=== PATIENT | female | born 1950 | race Caucasian/White ===

== ENCOUNTER 2017-08-18 17:33 | Inpatient (IN) | payer BC, OTHER ==
[~2017-08-18] VITALS: Ht 172.7 cm; Wt 129.6 kg
[~2017-08-18 17:33] MED LIST: ASPI-1009 PO; BIFI1CAP PO; CALC625T31 PO; CLON-528 PO; CYCL-1 PO; FLUO40CA10 PO; HYDR-565 PO; LURA40TA3 PO; METO25TA6 PO; MULT-1085 PO; PANT40TA39 PO; TOPI100T18 PO; ZOLP5TAB8 PO
[2017-08-18] MEDS ORDERED: HYDROmorphone 2mg/ml vial IM STA (19:11)
[2017-08-18] MEDS ORDERED: diazepam 5mg tablet PO STA (19:11)
[2017-08-18] MEDS ORDERED: ketorolac trometh. 30mg/ml inj. IM ONE (19:15)
[2017-08-18] MEDS ORDERED: HYDR-565 PO (19:34)
[2017-08-18] MEDS ORDERED: GABA300C PO (19:34)
[2017-08-18] MEDS ORDERED: CYCL-1 PO (19:34)
[2017-08-18] MEDS ORDERED: HYDROmorphone 1 mg/ml syringe IM ONE (23:45)
[2017-08-19] MEDS: normal saline 1000ml 1,000 ML IV SCH ×2 (00:22→16:43)
[2017-08-19] MEDS ORDERED: morphine 2 MG/ML inj. syringe IV PRN ×2 (00:25)
[2017-08-19] MEDS ORDERED: ondansetron/PF 4mg/2ml inj IV PRN (00:25)
[2017-08-19] MEDS ORDERED: potassium Cl 40MEQ/NS 500ml 500 ML IV PRN ×2 (00:25)
[2017-08-19] MEDS ORDERED: HYDROcodone/acetaminophen 5mg/325mg tablet PO PRN (00:25)
[2017-08-19] MEDS ORDERED: mag hydrox/Alum hydrox/simeth 30ml oral suspension PO PRN (00:25)
[2017-08-19] MEDS ORDERED: magnesium 2GM in 50ml NS 50 ML IV PRN (00:25)
[2017-08-19] MEDS ORDERED: potassium Cl 20 mEq SR tablet PO PRN ×2 (00:25)
[2017-08-19] MEDS ORDERED: magnesium 4gm in 100ml NS 100 ML IV PRN (00:25)
[2017-08-19] MEDS ORDERED: magnesium Cl slow-release 64mg tablet PO PRN (00:25)
[2017-08-19] MEDS ORDERED: magnesium hydroxide 30ml (MOM) UD suspension PO PRN (00:25)
[2017-08-19] MEDS ORDERED: HYDROcodone/acetaminophen 10/325mg tab PO PRN (00:25)
[2017-08-19 01:08] LABS: BASOPHILS # (AUTO) 0.1 X10'3 (0-0.2); BASOPHILS % (AUTO) 0.5 % (0-1); EOSINOPHILS # (AUTO) 0.2 X10'3 (0-0.9); EOSINOPHILS % (AUTO) 1.8 % (0-6); HEMATOCRIT 47.2 % (35.0-45.0); HEMOGLOBIN 15.3 g/dl (12.0-16.0); LYMPHOCYTES # (AUTO) 3.6 X10'3 (1.1-4.8); LYMPHOCYTES % (AUTO) 27.6 % (21-51); MEAN CORPUSCULAR HEMOGLOBIN 27.9 PG (27.0-31.0); MEAN CORPUSCULAR HGB CONC 32.5 % (33.0-36.5); MEAN CORPUSCULAR VOLUME 85.9 FL (78-98); MEAN PLATELET VOLUME 7.9 FL (7.4-10.4); MONOCYTES % (AUTO) 7.5 % (2-12); NEUTROPHILS # (AUTO) 8.2 X10'3 (1.8-7.7); NEUTROPHILS % (AUTO) 62.6 % (42-75); PLATELET COUNT 250 X10'3 (140-440); RED BLOOD COUNT 5.49 X10'6 (4.20-5.60); RED CELL DISTRIBUTION WIDTH 13.3 % (11.5-14.5); WHITE BLOOD COUNT 13.1 X10'3 (4.5-11.0)
[2017-08-19 01:11] LABS: ALANINE AMINOTRANSFERASE 65 U/L (12-78); ALBUMIN 3.5 G/DL (3.4-5.0); ALBUMIN/GLOBULIN RATIO 0.9 (1.1-1.5); ALKALINE PHOSPHATASE 124 IU/L (46-116); ANION GAP 12 (8-16); ASPARTATE AMINO TRANSFERASE 134 U/L (10-37); BLOOD UREA NITROGEN 10 MG/DL (7-18); BUN/CREATININE RATIO 8.3 (6.6-38.0); CALCIUM 8.9 MG/DL (8.5-10.1); CHLORIDE 105 MMOL/L (99-107); GLUCOSE 115 MG/DL (70-104); POTASSIUM 3.5 MMOL/L (3.5-5.1); SODIUM 140 MMOL/L (135-145); TOTAL CARBON DIOXIDE 22.9 MMOL/L (24-32); TOTAL PROTEIN 7.2 G/DL (6.4-8.2); eGFR 45 ML/MIN
[2017-08-19 01:31] LABS: INR 1.1 INR; PARTIAL THROMBOPLASTIN TIME 27 SECONDS (22-32); PROTHROMBIN TIME 11.6 SECONDS (9.0-12.0)
[2017-08-19 02:00] VITALS: BP 138/84
[2017-08-19] MEDS: acetaminophen 325mg tablet PO PRN ×3 (05:15→21:29)
[2017-08-19 06:00] VITALS: BP 148/95
[2017-08-19 06:20] LABS: CLARITY,URINE CLEAR (Clear); COLOR,URINE YELLOW (Yellow); GLUCOSE, URINE NEGATIVE (Neg); KETONES,URINE NEGATIVE (Neg); LEUKOCYTE ESTERASE ,URINE TRACE (Neg); NITRITES, URINE NEGATIVE (Neg); OCCULT BLOOD,URINE NEGATIVE (Neg); PROTEIN,URINE NEGATIVE (Neg)
[2017-08-19 06:26] LABS: UA COLLECTION TYPE CLN CATCH MIDSTREAM
[2017-08-19 06:30] LABS: BACTERIA,URINE FEW /HPF (Neg); HYALINE CASTS 0-3 /LPF (NEGATIVE); MUCUS STRANDS FEW /LPF (Neg); RBC,URINE 0-2 /HPF (0-2); RENAL CELLS, URINE MODERATE /HPF; SQUAMOUS EPITHELIAL CELL,UR FEW /LPF (FEW); TRANSITIONAL EPI CELLS,URINE FEW /HPF
[2017-08-19] MEDS ORDERED: FLU VACC QS2017-18 36MOS UP/PF 60 MCG/0.5 ML SYRINGE IMVAC ONE (06:35)
[2017-08-19] MEDS ORDERED: pneumococcal 23-VAL P-sac vacc 25 mcg/0.5ml vial IMVAC ONE (06:40)
[2017-08-19] MEDS: K and/or MAG REPLACEMENT MC SCH (08:00)
[2017-08-19] MEDS: calcium polycarbophil 625mg tablet PO SCH (08:00)
[2017-08-19] MEDS: FLUoxetine 20mg capsule PO SCH (08:29)
[2017-08-19] MEDS: metoprolol tartrate 25mg tablet PO SCH ×2 (08:29→21:27)
[2017-08-19] MEDS: pantoprazole 40mg Tablet.DR PO SCH ×2 (08:29→21:28)
[2017-08-19] MEDS: topiramate 100mg tablet PO SCH ×2 (08:29→21:27)
[2017-08-19 10:00] VITALS: BP 146/84
[2017-08-19] MEDS ORDERED: diazepam 5mg tablet PO ONE (10:30)
[2017-08-19] MEDS ORDERED: morphine 5 MG/ML injection IV PRN (11:30)
[2017-08-19] MEDS: morphine 5 MG/ML injection IV PRN ×2 (11:45→16:40)
[2017-08-19] MEDS ORDERED: lurasidone 20mg tablet PO ONE (17:00)
[2017-08-19 18:00] VITALS: BP 159/85
[2017-08-19] MEDS ORDERED: temazepam 15mg capsule PO PRN (21:00)
[2017-08-19] MEDS ORDERED: gabapentin 300mg capsule PO SCH (21:00)
[2017-08-19] MEDS ORDERED: clonazePAM 0.5mg tablet PO SCH (21:00)
[2017-08-19 22:00] VITALS: BP 112/68
[2017-08-20] MEDS: acetaminophen 325mg tablet PO PRN ×2 (05:41→12:22)
[2017-08-20] MEDS: calcium polycarbophil 625mg tablet PO SCH (07:16)
[2017-08-20] MEDS: K and/or MAG REPLACEMENT MC SCH (08:00)
[2017-08-20] MEDS: pantoprazole 40mg Tablet.DR PO SCH ×2 (09:07→19:51)
[2017-08-20] MEDS: morphine 5 MG/ML injection IV PRN ×2 (09:07→14:25)
[2017-08-20] MEDS: metoprolol tartrate 25mg tablet PO SCH ×2 (09:09→19:51)
[2017-08-20] MEDS: topiramate 100mg tablet PO SCH ×2 (09:09→19:51)
[2017-08-20] MEDS: FLUoxetine 20mg capsule PO SCH (09:09)
[2017-08-20 10:00] VITALS: BP 131/77
[2017-08-20] MEDS ORDERED: LURASIDONE HCL 40 MG PO SCH (17:00)
[2017-08-20 18:00] VITALS: BP 128/75
[2017-08-20] MEDS ORDERED: morphine 2 MG/ML inj. syringe IV PRN (19:57)
[2017-08-20] MEDS: morphine 2 MG/ML inj. syringe IV PRN (20:04)
[2017-08-20] MEDS: clonazePAM 0.5mg tablet PO SCH (21:07)
[2017-08-20 22:00] VITALS: BP 117/76
[2017-08-21] MEDS: morphine 2 MG/ML inj. syringe IV PRN ×3 (02:47→11:31)
[2017-08-21 05:00] VITALS: BP 127/75
[2017-08-21] MEDS: FLUoxetine 20mg capsule PO SCH (07:33)
[2017-08-21] MEDS: topiramate 100mg tablet PO SCH ×2 (07:33→20:12)
[2017-08-21] MEDS: pantoprazole 40mg Tablet.DR PO SCH ×2 (07:33→20:12)
[2017-08-21] MEDS: calcium polycarbophil 625mg tablet PO SCH (07:33)
[2017-08-21] MEDS: metoprolol tartrate 25mg tablet PO SCH ×2 (07:33→20:12)
[2017-08-21] MEDS: K and/or MAG REPLACEMENT MC SCH (08:00)
[2017-08-21 12:07] VITALS: BP 115/72
[2017-08-21] MEDS: oxyCODONE/APAP 10/325mg tablet PO PRN ×2 (15:55→20:16)
[2017-08-21 18:30] VITALS: BP 147/82
[2017-08-21] MEDS: clonazePAM 0.5mg tablet PO SCH (20:12)
[2017-08-21 22:00] VITALS: BP 115/69
[2017-08-22] MEDS: oxyCODONE/APAP 10/325mg tablet PO PRN ×5 (03:45→20:17)
[2017-08-22] MEDS: FLUoxetine 20mg capsule PO SCH (07:41)
[2017-08-22] MEDS: pantoprazole 40mg Tablet.DR PO SCH ×2 (07:42→20:17)
[2017-08-22] MEDS: topiramate 100mg tablet PO SCH ×2 (07:42→20:17)
[2017-08-22] MEDS: calcium polycarbophil 625mg tablet PO SCH (07:42)
[2017-08-22] MEDS: metoprolol tartrate 25mg tablet PO SCH ×2 (07:43→20:17)
[2017-08-22] MEDS: K and/or MAG REPLACEMENT MC SCH (08:00)
[2017-08-22] MEDS ORDERED: lactulose 20gm/30ml cup PO PRN (09:45)
[2017-08-22 11:10] VITALS: BP 112/54
[2017-08-22 18:30] VITALS: BP 134/75
[2017-08-22] MEDS: docusate sod 250mg capsule PO SCH (20:00)
[2017-08-22] MEDS: clonazePAM 0.5mg tablet PO SCH (20:17)
[2017-08-22] MEDS ORDERED: sennosides 8.6mg tablet PO SCH (21:00)
[2017-08-22 22:00] VITALS: BP 111/70
[2017-08-23] MEDS: oxyCODONE/APAP 10/325mg tablet PO PRN ×2 (04:30→08:32)
[2017-08-23 05:00] VITALS: BP 104/72
[2017-08-23] MEDS: K and/or MAG REPLACEMENT MC SCH (07:29)
[2017-08-23] MEDS: FLUoxetine 20mg capsule PO SCH (07:44)
[2017-08-23] MEDS: pantoprazole 40mg Tablet.DR PO SCH (07:44)
[2017-08-23] MEDS: topiramate 100mg tablet PO SCH (07:44)
[2017-08-23] MEDS: metoprolol tartrate 25mg tablet PO SCH (07:44)
[2017-08-23] MEDS: docusate sod 250mg capsule PO SCH (08:00)
[2017-08-23] MEDS: calcium polycarbophil 625mg tablet PO SCH (08:00)
== END 2017-08-23 11:55 | disposition home or self-care (01) | DRG 552 ==
LOC: ER 17:34 → ED HOLD 08-19 00:22 → ORTHO 4S 08-19 01:15
PROVIDERS: ADMIT Internal Medicine; ATTEND Family Medicine
DX: S22.089A Unspecified fracture of T11-T12 vertebra, initial encounter for closed fracture (principal); E66.01 Morbid (severe) obesity due to excess calories; Z68.41 Body mass index [BMI] 40.0-44.9, adult; I10 Essential (primary) hypertension; G62.9 Polyneuropathy, unspecified; G89.29 Other chronic pain; K21.9 Gastro-esophageal reflux disease without esophagitis; M19.90 Unspecified osteoarthritis, unspecified site; K59.00 Constipation, unspecified; S80.01XA Contusion of right knee, initial encounter; F32.9 Major depressive disorder, single episode, unspecified; F41.9 Anxiety disorder, unspecified; Z88.6 Allergy status to analgesic agent; Z79.899 Other long term (current) drug therapy; Z90.49 Acquired absence of other specified parts of digestive tract; Z90.710 Acquired absence of both cervix and uterus; Z85.41 Personal history of malignant neoplasm of cervix uteri; Z87.11 Personal history of peptic ulcer disease; V87.7XXA Person injured in collision between other specified motor vehicles (traffic), initial encounter; Y93.89 Activity, other specified; Y92.410 Unspecified street and highway as the place of occurrence of the external cause; Y99.8 Other external cause status
CPT/HCPCS: 36415; 71101; 72125; 72128; 72131; 72146; 73560; 76700; 80053; 81001; 83735; 85025; 85610; 85730; 87070; 87088; 96372; 97110; 97116; 97162; 97530; 99285; J1170; J1885; J2270; J7030; Q2037

== ENCOUNTER 2020-11-04 09:35 | Outpatient (CLI) | payer MEDICARE ==
[2020-11-04] VITALS (18 sets, daily range): BP systolic 48–174; BP diastolic 23–125
[~2020-11-04 09:35] MED LIST changes: -CALC625T31 PO; +CHOL50004 PO; -CYCL-1 PO; -HYDR-565 PO; +LOP25T PO; -LURA40TA3 PO; -METO25TA6 PO; +OMEG-79 PO; +ROSU20TA2 PO; +SELE200C PO; +TOP100T PO; -TOPI100T18 PO; -ZOLP5TAB8 PO; +[UNRECOGNIZED DRUG - OTHER] PO
== END 2020-11-04 23:59 | disposition home or self-care (01) ==
LOC: CARD DIAG 09:35
PROVIDERS: ATTEND Internal Medicine Interventional Cardiology
DX: R55 Syncope and collapse (principal)
CPT/HCPCS: 93660

== ENCOUNTER 2022-01-20 04:33 | Emergency (ER) | payer MEDICARE ==
[~2022-01-20] VITALS: Ht 172.7 cm; Wt 86.3 kg
[2022-01-20] MEDS ORDERED: ondansetron/PF 4mg/2ml inj IV ONE (05:45)
[2022-01-20 06:06] LABS: BASOPHILS % (AUTO) 0.4 % (0-1); EOSINOPHILS # (AUTO) 0.2 X10'3 (0-0.9); EOSINOPHILS % (AUTO) 1.8 % (0-6); HEMATOCRIT 41.9 % (35.0-45.0); HEMOGLOBIN 13.8 g/dl (12.0-16.0); LYMPHOCYTES # (AUTO) 2.5 X10'3 (1.1-4.8); LYMPHOCYTES % (AUTO) 28.5 % (21-51); MEAN CORPUSCULAR HEMOGLOBIN 27.8 PG (27.0-31.0); MEAN CORPUSCULAR VOLUME 84.2 FL (78-98); MEAN PLATELET VOLUME 6.8 FL (7.4-10.4); MONOCYTES # (AUTO) 0.7 X10'3 (0-0.9); MONOCYTES % (AUTO) 7.7 % (2-12); NEUTROPHILS # (AUTO) 5.5 X10'3 (1.8-7.7); NEUTROPHILS % (AUTO) 61.6 % (42-75); PLATELET COUNT 228 X10'3 (140-440); RED BLOOD COUNT 4.97 X10'6 (4.20-5.60); RED CELL DISTRIBUTION WIDTH 14.5 % (11.5-14.5); WHITE BLOOD COUNT 8.9 X10'3 (4.5-11.0)
[2022-01-20 06:23] LABS: ALANINE AMINOTRANSFERASE 105 U/L (12-78); ALBUMIN 3.1 G/DL (3.4-5.0); ANION GAP 7 (8-16); ASPARTATE AMINO TRANSFERASE 214 U/L (10-37); BILIRUBIN,TOTAL 0.7 MG/DL (0.1-1.0); BLOOD UREA NITROGEN 9 MG/DL (7-18); BUN/CREATININE RATIO 9.5 (6.6-38.0); CHLORIDE 109 MMOL/L (99-107); CREATININE 0.95 MG/DL (0.40-0.90); GLUCOSE 95 MG/DL (70-104); SODIUM 140 MMOL/L (135-145); TOTAL CARBON DIOXIDE 24.5 MMOL/L (24-32); TOTAL PROTEIN 6.1 G/DL (6.4-8.2); eGFR 58 ML/MIN
[2022-01-20 06:29] LABS: POTASSIUM 2.8 MMOL/L (3.5-5.1)
[2022-01-20] MEDS ORDERED: aluminum hydroxide 1,920MG/30ml UD cup PO PRN (06:30)
[2022-01-20] MEDS ORDERED: LIDOcaine Viscous 15ml cup MM PRN (06:30)
[2022-01-20] MEDS ORDERED: POTASSIUM BICARB 20meq eff tab 20 MEQ TABLET.EFF PO ONE (06:30)
[2022-01-20 06:39] LABS: ALKALINE PHOSPHATASE 144 IU/L (46-116); CALCIUM 8.3 MG/DL (8.5-10.1)
[2022-01-20] MEDS ORDERED: mag hydrox/Alum hydrox/simeth 30ml oral suspension PO PRN (06:55)
[2022-01-20 08:33] VITALS: BP 119/65
== END 2022-01-20 08:33 | disposition home or self-care (01) ==
LOC: ER 04:33
DX: K64.4 Residual hemorrhoidal skin tags (principal); E87.6 Hypokalemia; I25.10 Atherosclerotic heart disease of native coronary artery without angina pectoris; I10 Essential (primary) hypertension; K21.9 Gastro-esophageal reflux disease without esophagitis; G89.29 Other chronic pain; F41.9 Anxiety disorder, unspecified; F32.9 Major depressive disorder, single episode, unspecified; Z90.49 Acquired absence of other specified parts of digestive tract; Z90.710 Acquired absence of both cervix and uterus; Z98.890 Other specified postprocedural states; Z88.6 Allergy status to analgesic agent; Z79.82 Long term (current) use of aspirin; Z79.899 Other long term (current) drug therapy
CPT/HCPCS: 36415; 71045; 80053; 84484; 85025; 86885; 86900; 86901; 93005; 96374; 99285; J2405

== ENCOUNTER 2023-06-06 12:24 | Inpatient (IN) | payer MEDICARE ==
[~2023-06-06] VITALS: Ht 167.6 cm; Wt 109.0 kg
[2023-06-06 12:58] LABS: BASOPHILS # (AUTO) 0.1 X10'3 (0-0.2); BASOPHILS % (AUTO) 0.6 % (0-1); EOSINOPHILS # (AUTO) 0.5 X10'3 (0-0.9); EOSINOPHILS % (AUTO) 3.7 % (0-6); HEMATOCRIT 38.9 % (35.0-45.0); HEMOGLOBIN 12.6 g/dl (12.0-16.0); LYMPHOCYTES # (AUTO) 2.7 X10'3 (1.1-4.8); LYMPHOCYTES % (AUTO) 22.4 % (21-51); MEAN CORPUSCULAR HEMOGLOBIN 27.8 PG (27.0-31.0); MEAN CORPUSCULAR HGB CONC 32.4 g/dL (33.0-36.5); MONOCYTES % (AUTO) 7.9 % (2-12); NEUTROPHILS % (AUTO) 65.4 % (42-75); PLATELET COUNT 377 X10'3 (140-440); RED BLOOD COUNT 4.52 X10'6 (4.20-5.60); RED CELL DISTRIBUTION WIDTH 15.4 % (11.5-14.5); WHITE BLOOD COUNT 12.2 X10'3 (4.5-11.0)
[2023-06-06 13:19] LABS: ALANINE AMINOTRANSFERASE 19 U/L (12-78); ALBUMIN 2.9 G/DL (3.4-5.0); ALBUMIN/GLOBULIN RATIO 0.7 (1.1-1.5); ALKALINE PHOSPHATASE 120 IU/L (46-116); ANION GAP 9 (8-16); ASPARTATE AMINO TRANSFERASE 16 U/L (10-37); BILIRUBIN,TOTAL 0.4 MG/DL (0.1-1.0); BLOOD UREA NITROGEN 13 MG/DL (7-18); BUN/CREATININE RATIO 13.8 (10.0-20.0); CALCIUM 8.8 MG/DL (8.5-10.1); CHLORIDE 109 MMOL/L (99-107); CREATININE 0.94 MG/DL (0.40-0.90); GLUCOSE 99 MG/DL (70-104); POTASSIUM 3.6 MMOL/L (3.5-5.1); SODIUM 143 MMOL/L (135-145); TOTAL CARBON DIOXIDE 25.3 MMOL/L (24-32); TOTAL PROTEIN 6.8 G/DL (6.4-8.2); eCRCL 52 ML/MIN; eGFR 59 ML/MIN
[2023-06-06] MEDS ORDERED: ringers solution, lacted 1,000 ML IV ONE (15:25)
[2023-06-06] MEDS ORDERED: vancomycin/NS 1 GM ADD-VANTAGE 250 ML IV ONE (15:25)
[2023-06-06 16:11] LABS: APTT 27 SECONDS (22-32); INR 1.1 INR; PROTHROMBIN TIME 11.8 SECONDS (9.0-12.0)
[2023-06-06] MEDS ORDERED: HYDROcodone/acetaminophen 5mg/325mg tablet PO PRN (17:55)
[2023-06-06] MEDS ORDERED: acetaminophen 325mg tablet PO PRN (17:55)
[2023-06-06] MEDS ORDERED: morphine 2 MG/ML inj. syringe IV PRN (17:55)
[2023-06-06] MEDS ORDERED: mag hydrox/Alum hydrox/simeth 30ml oral suspension PO PRN (17:55)
[2023-06-06] MEDS ORDERED: magnesium hydroxide 30ml (MOM) UD suspension PO PRN (17:55)
[2023-06-06] MEDS ORDERED: magnesium 4gm in 100ml NS 100 ML IV PRN (17:55)
[2023-06-06] MEDS ORDERED: magnesium 2GM in 50ml NS 50 ML IV PRN (17:55)
[2023-06-06] MEDS ORDERED: magnesium Cl slow-release 64mg tablet PO PRN (17:55)
[2023-06-06] MEDS ORDERED: potassium Cl 40MEQ/1/2NS 520ml 520 ML IV PRN (17:55)
[2023-06-06] MEDS ORDERED: potassium Cl 20 mEq SR tablet PO PRN (17:55)
[2023-06-06] MEDS: K and/or MAG REPLACEMENT MC SCH (19:24)
[2023-06-06] MEDS ORDERED: piperacillin/tazo 4.5gm/100ml 100 ML IV ONE (20:00)
[2023-06-06] MEDS: heparin, porcine 5000 units/ml vial SQ SCH (20:12)
[2023-06-06] MEDS: HYDROcodone/acetaminophen 10/325mg tab PO PRN (23:58)
[2023-06-07 00:01] LABS: BILIRUBIN,URINE NEGATIVE (Neg); CLARITY,URINE SLIGHTLY CLOUDY (Clear); COLOR,URINE YELLOW (Yellow); GLUCOSE, URINE NEGATIVE (Neg); KETONES,URINE NEGATIVE (Neg); LEUKOCYTE ESTERASE ,URINE NEGATIVE (Neg); NITRITES, URINE NEGATIVE (Neg); OCCULT BLOOD,URINE NEGATIVE (Neg); PH,URINE 7.5 (4.8-8.0); PROTEIN,URINE NEGATIVE (Neg)
[2023-06-07 00:02] LABS: UA COLLECTION TYPE CLN CATCH MIDSTREAM
[2023-06-07 00:08] LABS: MUCUS STRANDS NONE SEEN /LPF (Neg); SQUAMOUS EPITHELIAL CELL,UR MODERATE /LPF (FEW); TRANSITIONAL EPI CELLS,URINE FEW /HPF
[2023-06-07 00:09] LABS: RBC,URINE 0-2 /HPF (0-2); WBC,URINE 0-4 /HPF (0-4)
[2023-06-07 00:11] LABS: AMORPHOUS PHOSPHATES 1+
[2023-06-07 00:12] LABS: BACTERIA,URINE FEW /HPF (Neg)
[2023-06-07] MEDS: vancomycin/NS 1 GM ADD-VANTAGE 250 ML IV SCH ×2 (04:26→16:35)
[2023-06-07] MEDS: HYDROcodone/acetaminophen 10/325mg tab PO PRN ×3 (04:35→20:46)
[2023-06-07] MEDS: K and/or MAG REPLACEMENT MC SCH ×2 (07:44→19:59)
[2023-06-07] MEDS: heparin, porcine 5000 units/ml vial SQ SCH (07:57)
[2023-06-07 08:45] LABS: BASOPHILS # (AUTO) 0.1 X10'3 (0-0.2); BASOPHILS % (AUTO) 0.6 % (0-1); EOSINOPHILS # (AUTO) 0.5 X10'3 (0-0.9); EOSINOPHILS % (AUTO) 4.1 % (0-6); HEMOGLOBIN 11.9 g/dl (12.0-16.0); LYMPHOCYTES # (AUTO) 3.8 X10'3 (1.1-4.8); LYMPHOCYTES % (AUTO) 32.4 % (21-51); MEAN CORPUSCULAR HEMOGLOBIN 27.1 PG (27.0-31.0); MEAN CORPUSCULAR HGB CONC 31.3 g/dL (33.0-36.5); MEAN CORPUSCULAR VOLUME 86.5 FL (78-98); MEAN PLATELET VOLUME 7.1 FL (7.4-10.4); MONOCYTES % (AUTO) 8.4 % (2-12); NEUTROPHILS # (AUTO) 6.3 X10'3 (1.8-7.7); NEUTROPHILS % (AUTO) 54.5 % (42-75); PLATELET COUNT 342 X10'3 (140-440); RED BLOOD COUNT 4.39 X10'6 (4.20-5.60); RED CELL DISTRIBUTION WIDTH 15.6 % (11.5-14.5); WHITE BLOOD COUNT 11.6 X10'3 (4.5-11.0)
[2023-06-07 09:28] LABS: ALBUMIN 2.8 G/DL (3.4-5.0); ANION GAP 10 (8-16); BLOOD UREA NITROGEN 11 MG/DL (7-18); BUN/CREATININE RATIO 11.5 (10.0-20.0); CALCIUM 8.7 MG/DL (8.5-10.1); CHLORIDE 107 MMOL/L (99-107); CHOL/HDL RATIO 2.2 (0.00-4.99); CHOLESTEROL 129 MG/DL (0-200); CREATININE 0.96 MG/DL (0.40-0.90); GLUCOSE 93 MG/DL (70-104); HDL CHOLESTEROL 59 MG/DL (35-60); LDL CHOLESTEROL 54 MG/DL (50-100); POTASSIUM 3.3 MMOL/L (3.5-5.1); SODIUM 140 MMOL/L (135-145); TOTAL CARBON DIOXIDE 22.9 MMOL/L (24-32); TRIGLYCERIDES 99 MG/DL (20-135); eCRCL 51 ML/MIN; eGFR 57 ML/MIN
--- NOTE | 2023-06-07 09:37 | NUR ---
Wound nurse at bedside.
[2023-06-07] MEDS: potassium Cl 20 mEq SR tablet PO PRN ×3 (11:36→20:47)
[2023-06-07] MEDS: hydrOXYzine 10 MG tablet PO PRN (11:36)
[2023-06-07] MEDS ORDERED: HYDR-3686 PO (13:30)
[2023-06-07] MEDS ORDERED: TRAZ-251 PO (13:30)
[2023-06-07] MEDS ORDERED: ATOM80CA3 PO (13:30)
[2023-06-07] MEDS ORDERED: CYCL-394 PO (13:30)
[2023-06-07] MEDS ORDERED: NITR0.4T51 SL (13:30)
[2023-06-07] MEDS ORDERED: OMEP40CA21 PO (13:30)
--- NOTE | 2023-06-07 13:40 | NUR ---
Paged and notified Dr. Gonzalez regarding patient recently being discharged on 05/25/23 due to subdural hematoma and if it was safe at this point to being administering heparin. Dr. Gonzalez gave verbal order to discontinue heparin SQ at this time. Dr. Gonzalez also aware that med rec has been updated, he stated that he would review.
--- NOTE | 2023-06-07 13:47 | NUR ---
PRESSURE ULCER EDUCATION: DEFINITION: A pressure ulcer is an area of skin that breaks down when you stay in one position too long. The constant pressure against the skin reduces the blood flow to that area and the affected tissue dies. CAUSES: "Being bedridden or in a wheelchair "Fragile skin "Having a chronic condition, such as diabetes or vascular disease "Inability to move certain parts of your body without assistance "Older age "Incontinence of urine or stool SYMPTOMS: "A reddened area that DOES NOT turn white when pressed on - this can be the beginning of a pressure ulcer "A blister, deep sore or a crater - these can be advanced pressure ulcers FIRST AID: "Relieve the pressure on this area "Keep the area clean and dry "Call your primary doctor if you see any of the above symptoms "DO NOT massage the area "DO NOT use a donut shaped or ring shaped pillow- these actually interfere with the blood flow and cause complications PREVENTION: "Check for pressure ulcers everyday "Change position at least every two hours to relieve pressure "Use items that help relieve pressure- pillows, sheepskin, foam padding, and powders. "Keep skin clean and dry "Eat healthy well balanced meals "Exercise daily IF YOU SEE ANY OF THESE SYMPTOMS WHILE IN THE HOSPITAL - TELL YOUR NURSE IMMEDIATELY. IF YOU SEE ANY OF THESE SYMPTOMS WHILE AT HOME OR HAVE ANY QUESTIONS OR CONCERNS ABOUT PRESSURE ULCERS - CALL YOUR PRIMARY DOCTOR IMMEDIATELY. Addendum: 06/07/23 at 1348 by Drea Smith LVN Amended: Links added.
[2023-06-07] MEDS: morphine 2 MG/ML inj. syringe IV PRN ×2 (16:36→23:35)
[2023-06-07] MEDS: pantoprazole 40mg Tablet.DR PO SCH (20:47)
[2023-06-07] MEDS: traZODone 50mg tablet PO SCH (20:47)
--- NOTE | 2023-06-07 22:30 | NUR ---
attempted to call report nurse w/ pt at this time will f/u.
--- NOTE | 2023-06-07 22:45 | NUR ---
Patient in room ED 8. I have received report from JOSELUIS GODFREY RN and had the opportunity to ask questions and assume patient care.
--- NOTE | 2023-06-07 23:27 | NUR ---
PT ARRIVED TO FLOOR VIA GURNEY ACCOMPANIED BY ER STAFF. TRANSFERRED PT TO HOSPITAL BED. PT WET WITH URINE. CLEANED PT UP. ORIENTED TO ROOM AND CALL LIGHT. WILL CONTINUE TO MONITOR.
[2023-06-07 23:29] VITALS: BP 140/66; PULSE 87; RESP 20; TEMP 97.5; O2SAT 98
[2023-06-07] MEDS: cyclobenzaprine 10mg tablet PO SCH (23:35)
[2023-06-07] MEDS: hydrOXYzine 25 MG tablet PO SCH (23:35)
[2023-06-08] VITALS (7 sets, daily range): BP systolic 127–145; BP diastolic 57–68; PULSE 80–95; RESP 13–18; TEMP 97.5–97.9; O2SAT 94–98
[2023-06-08] MEDS ORDERED: VANCOMYCIN LEVEL IV ONE (03:30)
[2023-06-08] MEDS: vancomycin/NS 1 GM ADD-VANTAGE 250 ML IV SCH (03:40)
--- NOTE | 2023-06-08 05:59 | NUR ---
Problems reprioritized. Patient report given, questions answered & plan of care reviewed with EDIL Coy.
--- NOTE | 2023-06-08 06:08 | NUR ---
I have received report from BENNETT Hernandez and had the opportunity to ask questions and assume patient care. No distress at this time.
[2023-06-08 07:05] LABS: ALBUMIN 2.7 G/DL (3.4-5.0); ANION GAP 5 (8-16); BLOOD UREA NITROGEN 11 MG/DL (7-18); BUN/CREATININE RATIO 12.5 (10.0-20.0); CHLORIDE 107 MMOL/L (99-107); CREATININE 0.88 MG/DL (0.40-0.90); GLUCOSE 96 MG/DL (70-104); MAGNESIUM 2.1 MG/DL (1.5-2.4); POTASSIUM 4.6 MMOL/L (3.5-5.1); SODIUM 138 MMOL/L (135-145); TOTAL CARBON DIOXIDE 25.7 MMOL/L (24-32); VANCOMYCIN,TROUGH 14.6 ug/mL (10.0-20.0); eCRCL 56 ML/MIN; eGFR 64 ML/MIN
[2023-06-08 07:14] LABS: BASOPHILS % (AUTO) 0.4 % (0-1); EOSINOPHILS # (AUTO) 0.3 X10'3 (0-0.9); EOSINOPHILS % (AUTO) 3.9 % (0-6); HEMATOCRIT 40.5 % (35.0-45.0); LYMPHOCYTES # (AUTO) 2.4 X10'3 (1.1-4.8); MEAN CORPUSCULAR HEMOGLOBIN 27.6 PG (27.0-31.0); MEAN CORPUSCULAR HGB CONC 32.1 g/dL (33.0-36.5); MEAN PLATELET VOLUME 7.5 FL (7.4-10.4); MONOCYTES # (AUTO) 0.8 X10'3 (0-0.9); MONOCYTES % (AUTO) 10.1 % (2-12); NEUTROPHILS # (AUTO) 4.7 X10'3 (1.8-7.7); NEUTROPHILS % (AUTO) 56.6 % (42-75); PLATELET COUNT 317 X10'3 (140-440); RED BLOOD COUNT 4.71 X10'6 (4.20-5.60); RED CELL DISTRIBUTION WIDTH 15.3 % (11.5-14.5); WHITE BLOOD COUNT 8.3 X10'3 (4.5-11.0)
[2023-06-08] MEDS: K and/or MAG REPLACEMENT MC SCH ×2 (08:00→20:00)
[2023-06-08] MEDS: OMEGA-3/DHA/EPA/FISH OIL 1 EACH CAPSULE.DR PO SCH (08:01)
[2023-06-08] MEDS: aspirin 81mg, enteric-coated 1 TAB TABLET.DR PO SCH (08:02)
[2023-06-08] MEDS: cholecalciferol (vitamin D3) 1,000 unit (25mcg) tablet PO SCH (08:02)
[2023-06-08] MEDS: hydrOXYzine 25 MG tablet PO SCH ×2 (08:02→16:19)
[2023-06-08] MEDS: FLUoxetine 20mg capsule PO SCH (08:02)
[2023-06-08] MEDS: cyclobenzaprine 10mg tablet PO SCH ×3 (08:02→23:23)
[2023-06-08] MEDS: topiramate 100mg tablet PO SCH (08:06)
[2023-06-08] MEDS: multivitamins, therapeutics tablet PO SCH (08:06)
[2023-06-08] MEDS: atomoxetine 40 MG capsule PO SCH (08:06)
[2023-06-08] MEDS: pantoprazole 40mg Tablet.DR PO SCH ×2 (08:06→21:46)
[2023-06-08] MEDS: ROSUVASTATIN CALCIUM 5 MG TABLET PO SCH (08:13)
[2023-06-08] MEDS: HYDROcodone/acetaminophen 10/325mg tab PO PRN ×2 (12:43→23:23)
[2023-06-08] MEDS: VANCOmycin 1250MG/NS 250ml Bag 250 ML IV SCH (16:19)
--- NOTE | 2023-06-08 18:30 | NUR ---
Problems reprioritized. Patient report given, questions answered & plan of care reviewed with BENNETT Nguyen.
--- NOTE | 2023-06-08 19:10 | NUR ---
Patient in room ORTHO 4008. I have received report from FELISA SOLO and had the opportunity to ask questions and assume patient care.
[2023-06-08] MEDS: hydrOXYzine 10 MG tablet PO PRN (21:46)
[2023-06-08] MEDS: traZODone 50mg tablet PO SCH (21:46)
[2023-06-09] MEDS: VANCOmycin 1250MG/NS 250ml Bag 250 ML IV SCH ×2 (04:40→16:12)
[2023-06-09] MEDS: HYDROcodone/acetaminophen 10/325mg tab PO PRN ×4 (05:20→23:40)
[2023-06-09 06:00] VITALS: BP 140/70; PULSE 82; RESP 14; TEMP 97.7; O2SAT 92
--- NOTE | 2023-06-09 06:18 | NUR ---
I have received report from BENNETT Nguyen and had the opportunity to ask questions and assume patient care. No distress at this time.
[2023-06-09 07:01] LABS: BASOPHILS # (AUTO) 0.1 X10'3 (0-0.2); BASOPHILS % (AUTO) 0.7 % (0-1); EOSINOPHILS # (AUTO) 0.4 X10'3 (0-0.9); EOSINOPHILS % (AUTO) 4.3 % (0-6); HEMATOCRIT 37.1 % (35.0-45.0); HEMOGLOBIN 11.9 g/dl (12.0-16.0); LYMPHOCYTES # (AUTO) 3.4 X10'3 (1.1-4.8); LYMPHOCYTES % (AUTO) 37.1 % (21-51); MEAN CORPUSCULAR HEMOGLOBIN 27.4 PG (27.0-31.0); MEAN CORPUSCULAR HGB CONC 32.1 g/dL (33.0-36.5); MEAN CORPUSCULAR VOLUME 85.2 FL (78-98); MEAN PLATELET VOLUME 7.4 FL (7.4-10.4); MONOCYTES # (AUTO) 0.8 X10'3 (0-0.9); MONOCYTES % (AUTO) 8.4 % (2-12); NEUTROPHILS # (AUTO) 4.5 X10'3 (1.8-7.7); NEUTROPHILS % (AUTO) 49.5 % (42-75); PLATELET COUNT 345 X10'3 (140-440); RED BLOOD COUNT 4.35 X10'6 (4.20-5.60); WHITE BLOOD COUNT 9.1 X10'3 (4.5-11.0)
[2023-06-09 07:08] LABS: ALBUMIN 2.6 G/DL (3.4-5.0); ANION GAP 8 (8-16); BLOOD UREA NITROGEN 8 MG/DL (7-18); BUN/CREATININE RATIO 10.5 (10.0-20.0); CALCIUM 8.6 MG/DL (8.5-10.1); CHLORIDE 106 MMOL/L (99-107); CREATININE 0.76 MG/DL (0.40-0.90); GLUCOSE 87 MG/DL (70-104); MAGNESIUM 1.9 MG/DL (1.5-2.4); POTASSIUM 3.1 MMOL/L (3.5-5.1); SODIUM 139 MMOL/L (135-145); TOTAL CARBON DIOXIDE 24.9 MMOL/L (24-32); eCRCL 64 ML/MIN; eGFR 75 ML/MIN
[2023-06-09] MEDS: FLUoxetine 20mg capsule PO SCH (07:46)
[2023-06-09] MEDS: hydrOXYzine 25 MG tablet PO SCH ×3 (07:47→16:08)
[2023-06-09] MEDS: aspirin 81mg, enteric-coated 1 TAB TABLET.DR PO SCH (07:47)
[2023-06-09] MEDS: multivitamins, therapeutics tablet PO SCH (07:47)
[2023-06-09] MEDS: cholecalciferol (vitamin D3) 1,000 unit (25mcg) tablet PO SCH (07:47)
[2023-06-09] MEDS: cyclobenzaprine 10mg tablet PO SCH ×2 (07:47→16:08)
[2023-06-09] MEDS: pantoprazole 40mg Tablet.DR PO SCH ×2 (07:47→19:20)
[2023-06-09] MEDS: OMEGA-3/DHA/EPA/FISH OIL 1 EACH CAPSULE.DR PO SCH (07:47)
[2023-06-09] MEDS: topiramate 100mg tablet PO SCH (07:47)
[2023-06-09] MEDS: atomoxetine 40 MG capsule PO SCH (07:47)
[2023-06-09] MEDS: ROSUVASTATIN CALCIUM 5 MG TABLET PO SCH (07:48)
[2023-06-09] MEDS: K and/or MAG REPLACEMENT MC SCH ×2 (07:59→20:00)
[2023-06-09 08:00] VITALS: RESP 16; O2SAT 93
[2023-06-09] MEDS: potassium Cl 20 mEq SR tablet PO PRN ×3 (08:02→16:08)
[2023-06-09 10:00] VITALS: BP 106/48; PULSE 87; RESP 15; TEMP 97.1; O2SAT 96
[2023-06-09 11:30] VITALS: RESP 18
[2023-06-09 18:00] VITALS: BP 120/47; PULSE 85; RESP 15; TEMP 98.6; O2SAT 97
--- NOTE | 2023-06-09 18:36 | NUR ---
Problems reprioritized. Patient report given, questions answered & plan of care reviewed with EDIL Ortega. No distress at this time.
[2023-06-09] MEDS: traZODone 50mg tablet PO SCH (21:52)
[2023-06-09 22:00] VITALS: BP 143/78; PULSE 85; RESP 18; TEMP 98.8; O2SAT 97
[2023-06-10] MEDS: cyclobenzaprine 10mg tablet PO SCH ×4 (00:39→23:35)
[2023-06-10] MEDS: hydrOXYzine 25 MG tablet PO SCH ×4 (00:39→23:35)
[2023-06-10] MEDS ORDERED: VANCOMYCIN LEVEL IV ONE (03:30)
--- NOTE | 2023-06-10 04:11 | NUR ---
Pt. needed vanco level at 0330.I tried twice to get blood, she is a very hard stick.Lab has been notified ,they will send day shift to draw the blood in 1h.
--- NOTE | 2023-06-10 05:22 | NUR ---
I agree with BUS PERSON physical assessment.
[2023-06-10] MEDS: VANCOmycin 1250MG/NS 250ml Bag 250 ML IV SCH (05:48)
[2023-06-10 06:00] VITALS: BP 150/76; PULSE 80; RESP 16; TEMP 97.8; O2SAT 97
[2023-06-10 06:14] LABS: BASOPHILS % (AUTO) 0.5 % (0-1); EOSINOPHILS # (AUTO) 0.5 X10'3 (0-0.9); EOSINOPHILS % (AUTO) 5.1 % (0-6); HEMATOCRIT 39.8 % (35.0-45.0); HEMOGLOBIN 12.7 g/dl (12.0-16.0); LYMPHOCYTES # (AUTO) 3.6 X10'3 (1.1-4.8); LYMPHOCYTES % (AUTO) 38.7 % (21-51); MEAN CORPUSCULAR HEMOGLOBIN 27.3 PG (27.0-31.0); MEAN CORPUSCULAR HGB CONC 31.8 g/dL (33.0-36.5); MEAN CORPUSCULAR VOLUME 85.9 FL (78-98); MEAN PLATELET VOLUME 6.8 FL (7.4-10.4); MONOCYTES # (AUTO) 0.8 X10'3 (0-0.9); MONOCYTES % (AUTO) 8.9 % (2-12); NEUTROPHILS # (AUTO) 4.4 X10'3 (1.8-7.7); NEUTROPHILS % (AUTO) 46.8 % (42-75); PLATELET COUNT 361 X10'3 (140-440); RED BLOOD COUNT 4.64 X10'6 (4.20-5.60); RED CELL DISTRIBUTION WIDTH 15.2 % (11.5-14.5); WHITE BLOOD COUNT 9.3 X10'3 (4.5-11.0)
[2023-06-10 06:30] LABS: ALBUMIN 2.8 G/DL (3.4-5.0); ANION GAP 4 (8-16); BLOOD UREA NITROGEN 10 MG/DL (7-18); BUN/CREATININE RATIO 11.6 (10.0-20.0); CALCIUM 8.9 MG/DL (8.5-10.1); CHLORIDE 104 MMOL/L (99-107); CREATININE 0.86 MG/DL (0.40-0.90); GLUCOSE 87 MG/DL (70-104); MAGNESIUM 1.9 MG/DL (1.5-2.4); POTASSIUM 3.5 MMOL/L (3.5-5.1); SODIUM 137 MMOL/L (135-145); TOTAL CARBON DIOXIDE 29.1 MMOL/L (24-32); eCRCL 57 ML/MIN; eGFR 65 ML/MIN
--- NOTE | 2023-06-10 06:30 | NUR ---
report to Pinky SOLO
[2023-06-10 06:39] LABS: VANCOMYCIN,TROUGH 19.2 ug/mL (10.0-20.0)
[2023-06-10] MEDS: K and/or MAG REPLACEMENT MC SCH ×2 (06:57→19:10)
[2023-06-10 08:00] VITALS: RESP 16; O2SAT 97
[2023-06-10] MEDS: HYDROcodone/acetaminophen 10/325mg tab PO PRN ×3 (08:03→20:20)
[2023-06-10] MEDS: aspirin 81mg, enteric-coated 1 TAB TABLET.DR PO SCH (08:04)
[2023-06-10] MEDS: atomoxetine 40 MG capsule PO SCH (08:04)
[2023-06-10] MEDS: ROSUVASTATIN CALCIUM 5 MG TABLET PO SCH (08:04)
[2023-06-10] MEDS: topiramate 100mg tablet PO SCH (08:04)
[2023-06-10] MEDS: FLUoxetine 20mg capsule PO SCH (08:04)
[2023-06-10] MEDS: cholecalciferol (vitamin D3) 1,000 unit (25mcg) tablet PO SCH (08:05)
[2023-06-10] MEDS: multivitamins, therapeutics tablet PO SCH (08:05)
[2023-06-10] MEDS: OMEGA-3/DHA/EPA/FISH OIL 1 EACH CAPSULE.DR PO SCH (08:05)
[2023-06-10] MEDS: pantoprazole 40mg Tablet.DR PO SCH ×2 (08:05→20:20)
[2023-06-10 10:00] VITALS: BP 117/46; PULSE 62; RESP 18; TEMP 98.1; O2SAT 93
--- NOTE | 2023-06-10 16:54 | NUR ---
Agree with assessment by Pinky SOLO
[2023-06-10] MEDS: sulfamethoxazole/trimethoprim DS (800/160mg) tablet PO SCH (17:23)
[2023-06-10 18:00] VITALS: BP 116/64; PULSE 85; RESP 18; TEMP 98.1; O2SAT 97
--- NOTE | 2023-06-10 18:15 | NUR ---
Patient in room ORTHO 4008. I have received report from SALINA SOLO and had the opportunity to ask questions and assume patient care.
[2023-06-10 20:00] VITALS: RESP 18; O2SAT 97
[2023-06-10] MEDS: hydrOXYzine 10 MG tablet PO PRN (20:20)
[2023-06-10] MEDS: traZODone 50mg tablet PO SCH (20:20)
[2023-06-10 22:00] VITALS: BP 105/61; PULSE 87; RESP 16; TEMP 98.6; O2SAT 95
[2023-06-11] MEDS: HYDROcodone/acetaminophen 10/325mg tab PO PRN ×4 (00:23→15:50)
[2023-06-11 05:59] LABS: BASOPHILS # (AUTO) 0.1 X10'3 (0-0.2); BASOPHILS % (AUTO) 0.6 % (0-1); EOSINOPHILS # (AUTO) 0.5 X10'3 (0-0.9); EOSINOPHILS % (AUTO) 4.9 % (0-6); HEMATOCRIT 39.1 % (35.0-45.0); HEMOGLOBIN 12.2 g/dl (12.0-16.0); LYMPHOCYTES % (AUTO) 42.3 % (21-51); MEAN CORPUSCULAR HEMOGLOBIN 26.8 PG (27.0-31.0); MEAN CORPUSCULAR HGB CONC 31.3 g/dL (33.0-36.5); MEAN CORPUSCULAR VOLUME 85.8 FL (78-98); MEAN PLATELET VOLUME 7.6 FL (7.4-10.4); MONOCYTES # (AUTO) 0.7 X10'3 (0-0.9); MONOCYTES % (AUTO) 7.8 % (2-12); NEUTROPHILS # (AUTO) 4.2 X10'3 (1.8-7.7); NEUTROPHILS % (AUTO) 44.4 % (42-75); PLATELET COUNT 366 X10'3 (140-440); RED BLOOD COUNT 4.56 X10'6 (4.20-5.60); RED CELL DISTRIBUTION WIDTH 15.3 % (11.5-14.5); WHITE BLOOD COUNT 9.5 X10'3 (4.5-11.0)
[2023-06-11 06:09] LABS: ALBUMIN 2.6 G/DL (3.4-5.0); ANION GAP 8 (8-16); BLOOD UREA NITROGEN 14 MG/DL (7-18); BUN/CREATININE RATIO 16.5 (10.0-20.0); CALCIUM 8.8 MG/DL (8.5-10.1); CHLORIDE 105 MMOL/L (99-107); CREATININE 0.85 MG/DL (0.40-0.90); GLUCOSE 83 MG/DL (70-104); POTASSIUM 3.4 MMOL/L (3.5-5.1); SODIUM 138 MMOL/L (135-145); eCRCL 58 ML/MIN; eGFR 66 ML/MIN
--- NOTE | 2023-06-11 06:13 | NUR ---
Problems reprioritized. Patient report given, questions answered & plan of care reviewed with DELORIS GUAJARDO.
--- NOTE | 2023-06-11 06:30 | NUR ---
Patient in room ORTHO 4014. I have received report from Wendy and had the opportunity to ask questions and assume patient care.
[2023-06-11 06:42] VITALS: BP 142/86; PULSE 76; RESP 14; TEMP 98; O2SAT 98
[2023-06-11] MEDS: OMEGA-3/DHA/EPA/FISH OIL 1 EACH CAPSULE.DR PO SCH (07:07)
[2023-06-11] MEDS: multivitamins, therapeutics tablet PO SCH (07:07)
[2023-06-11] MEDS: pantoprazole 40mg Tablet.DR PO SCH ×2 (07:07→21:42)
[2023-06-11] MEDS: cyclobenzaprine 10mg tablet PO SCH ×2 (07:08→15:41)
[2023-06-11] MEDS: atomoxetine 40 MG capsule PO SCH (07:08)
[2023-06-11] MEDS: topiramate 100mg tablet PO SCH (07:08)
[2023-06-11] MEDS: aspirin 81mg, enteric-coated 1 TAB TABLET.DR PO SCH (07:08)
[2023-06-11] MEDS: sulfamethoxazole/trimethoprim DS (800/160mg) tablet PO SCH ×2 (07:08→21:41)
[2023-06-11] MEDS: hydrOXYzine 25 MG tablet PO SCH ×2 (07:08→15:41)
[2023-06-11] MEDS: cholecalciferol (vitamin D3) 1,000 unit (25mcg) tablet PO SCH (07:08)
[2023-06-11] MEDS: ROSUVASTATIN CALCIUM 5 MG TABLET PO SCH (07:09)
[2023-06-11] MEDS: FLUoxetine 20mg capsule PO SCH (07:09)
[2023-06-11] MEDS: K and/or MAG REPLACEMENT MC SCH ×2 (07:17→20:00)
[2023-06-11 08:00] VITALS: RESP 18; O2SAT 95
[2023-06-11 10:01] VITALS: BP 111/56; PULSE 104; RESP 16; TEMP 98.3; O2SAT 94
--- NOTE | 2023-06-11 12:22 | NUR ---
Initial: Pt admit for contact dermatitis and r/o superimposed infection. Pt seen by wound care, per note pt with excoriation upper back with partial thickness skin loss. Pt documented with average 60% PO intake on heart healthy diet meeting 77% estimated energy needs and 78% estimated protein needs. Attempted visit with pt at bedside to obtain food preferences however pt unavailable. Recommend an Ensure Enlive BID to further assist with meeting estimated nutrient needs, to be sent pending physician approval in EMR. LBM 06/08 per EMR. D/w dietary to send prunes and prune juice with next meal to assist with a BM. Will continue to follow and monitor need for further nutrition intervention. Recommendations: 1) Continue heart healthy diet 2) Ensure Enlive BIDBD, pending physician approval in EMR 3) Routine bowel care 4) Weekly scaled weights Addendum: 06/11/23 at [address] Amended: Links added.
[2023-06-11] MEDS: diphenhydrAMINE 2%/zinc acetate cream TP SCH ×2 (13:00→19:30)
[2023-06-11] MEDS: bacitracin/polymyxin B 15 GM ointment TP SCH ×2 (15:43→19:30)
[2023-06-11] MEDS: lactose-reduced food (Ensure Enlive) - 237ml bottle PO SCH (17:30)
[2023-06-11 18:00] VITALS: BP 113/70; PULSE 88; RESP 18; TEMP 97.6; O2SAT 94
--- NOTE | 2023-06-11 18:18 | NUR ---
Problems reprioritized. Patient report given, questions answered & plan of care reviewed with Nicolás.
[2023-06-11 20:00] VITALS: RESP 18; O2SAT 97
[2023-06-11] MEDS: traZODone 50mg tablet PO SCH (21:41)
[2023-06-11 22:00] VITALS: BP 142/85; PULSE 97; RESP 20; TEMP 98.6; O2SAT 90
[2023-06-12] MEDS: cyclobenzaprine 10mg tablet PO SCH ×3 (00:34→16:00)
[2023-06-12] MEDS: hydrOXYzine 25 MG tablet PO SCH ×3 (00:34→16:00)
[2023-06-12] MEDS: ondansetron/PF 4mg/2ml inj IV PRN ×2 (04:25→21:02)
--- NOTE | 2023-06-12 04:42 | NUR ---
Reviewed Nicolás SOLO documentation and agree with it except where I documented my own findings.
[2023-06-12 06:00] VITALS: BP 149/91; PULSE 99; RESP 16; TEMP 97; O2SAT 97
--- NOTE | 2023-06-12 06:20 | NUR ---
Patient in room ORTHO 4014. I have received report from Nicolás SOLO and had the opportunity to ask questions and assume patient care.
[2023-06-12 06:30] VITALS: BP 149/91; PULSE 99; RESP 16; TEMP 97; O2SAT 97
--- NOTE | 2023-06-12 06:32 | NUR ---
Problems reprioritized. Patient report given, questions answered & plan of care reviewed with Catherine.
[2023-06-12] MEDS: lactose-reduced food (Ensure Enlive) - 237ml bottle PO SCH ×2 (07:30→17:30)
[2023-06-12 08:00] VITALS: RESP 16; O2SAT 97
[2023-06-12] MEDS: bacitracin/polymyxin B 15 GM ointment TP SCH ×3 (08:00→19:21)
[2023-06-12] MEDS: aspirin 81mg, enteric-coated 1 TAB TABLET.DR PO SCH (08:00)
[2023-06-12] MEDS: diphenhydrAMINE 2%/zinc acetate cream TP SCH ×3 (08:00→19:21)
[2023-06-12] MEDS: OMEGA-3/DHA/EPA/FISH OIL 1 EACH CAPSULE.DR PO SCH (08:00)
[2023-06-12] MEDS: FLUoxetine 20mg capsule PO SCH (08:00)
[2023-06-12] MEDS: multivitamins, therapeutics tablet PO SCH (08:00)
[2023-06-12] MEDS: topiramate 100mg tablet PO SCH (08:00)
[2023-06-12] MEDS: K and/or MAG REPLACEMENT MC SCH ×2 (08:00→20:00)
[2023-06-12] MEDS: pantoprazole 40mg Tablet.DR PO SCH ×2 (08:00→19:18)
[2023-06-12] MEDS: cholecalciferol (vitamin D3) 1,000 unit (25mcg) tablet PO SCH (08:00)
[2023-06-12] MEDS: atomoxetine 40 MG capsule PO SCH (08:00)
[2023-06-12] MEDS: ROSUVASTATIN CALCIUM 5 MG TABLET PO SCH (08:00)
[2023-06-12] MEDS: sulfamethoxazole/trimethoprim DS (800/160mg) tablet PO SCH (08:00)
--- NOTE | 2023-06-12 09:00 | NUR ---
Patient refused all her morning medications due to her having nausea
[2023-06-12 10:00] VITALS: BP 151/72; PULSE 99; RESP 18; TEMP 98.3; O2SAT 96
[2023-06-12] MEDS ORDERED: bisacodyl 10mg suppository rectal RC PRN (14:00)
[2023-06-12 18:00] VITALS: BP 115/88; PULSE 103; RESP 16; TEMP 97.7; O2SAT 94
--- NOTE | 2023-06-12 18:25 | NUR ---
Problems reprioritized. Patient report given, questions answered & plan of care reviewed with Nicolás SOLO.
[2023-06-12] MEDS: traZODone 50mg tablet PO SCH (19:18)
[2023-06-12] MEDS: HYDROcodone/acetaminophen 10/325mg tab PO PRN (19:18)
[2023-06-12 22:00] VITALS: BP 121/69; PULSE 101; RESP 20; TEMP 97.3; O2SAT 95
[2023-06-13] MEDS: cyclobenzaprine 10mg tablet PO SCH ×4 (00:28→23:38)
[2023-06-13] MEDS: hydrOXYzine 25 MG tablet PO SCH ×4 (00:28→23:38)
[2023-06-13] MEDS: ondansetron/PF 4mg/2ml inj IV PRN (03:19)
[2023-06-13 06:00] VITALS: BP 152/91; PULSE 98; RESP 18; TEMP 97.6; O2SAT 93
--- NOTE | 2023-06-13 06:19 | NUR ---
Problems reprioritized. Patient report given, questions answered & plan of care reviewed with Catherine.
--- NOTE | 2023-06-13 06:29 | NUR ---
CYLINDER CHECKER documentation: I have reviewed and agree with all interventions, assessments performed and documented by EDIL CHENEY.
--- NOTE | 2023-06-13 06:30 | NUR ---
Patient in room ORTHO 4014. I have received report from Nicolás SOLO and had the opportunity to ask questions and assume patient care.
[2023-06-13] MEDS: lactose-reduced food (Ensure Enlive) - 237ml bottle PO SCH ×2 (07:30→17:30)
[2023-06-13] MEDS: FLUoxetine 20mg capsule PO SCH ×2 (08:00→16:39)
[2023-06-13] MEDS: topiramate 100mg tablet PO SCH ×2 (08:00→16:40)
[2023-06-13] MEDS: OMEGA-3/DHA/EPA/FISH OIL 1 EACH CAPSULE.DR PO SCH ×2 (08:00→16:43)
[2023-06-13] MEDS: pantoprazole 40mg Tablet.DR PO SCH (08:00)
[2023-06-13] MEDS: multivitamins, therapeutics tablet PO SCH ×2 (08:00→16:39)
[2023-06-13] MEDS: atomoxetine 40 MG capsule PO SCH ×2 (08:00→16:39)
[2023-06-13] MEDS: aspirin 81mg, enteric-coated 1 TAB TABLET.DR PO SCH ×2 (08:00→16:37)
[2023-06-13] MEDS: K and/or MAG REPLACEMENT MC SCH ×2 (08:00→20:00)
[2023-06-13] MEDS: ROSUVASTATIN CALCIUM 5 MG TABLET PO SCH ×2 (08:00→16:37)
[2023-06-13] MEDS: diphenhydrAMINE 2%/zinc acetate cream TP SCH ×3 (08:00→19:58)
[2023-06-13] MEDS: cholecalciferol (vitamin D3) 1,000 unit (25mcg) tablet PO SCH ×2 (08:00→16:39)
[2023-06-13] MEDS: bacitracin/polymyxin B 15 GM ointment TP SCH ×3 (08:00→19:58)
[2023-06-13 10:00] VITALS: BP 170/87; PULSE 97; RESP 18; TEMP 97.9; O2SAT 92
--- NOTE | 2023-06-13 11:04 | NUR ---
Daughters, Shelby & Tatianna, spoke w/ myself re: pt's recent hospitalization at [facility] d/t a shoulder injury. While at [facility] multiple health concerns were identfied, and f/u tests were not performed, per dtrs. They stated the pt was dx w/ a "brain bleed they called a 'whisper' but nobody worked it up." They also stated pt's HH RN, that followed the pt after DC'g from [facility], stated upon assessment that the pt needed to be taken back to the hospital due to the rash on her back. The family opted to come to [facility] ER. The daughters are requesting the attending MD have a conference with them regarding POC, and desire that the pt have her "brain bleed" be addressed while admitted. Primary care ELECTRICIAN BUS, Catherine, is aware to notify Dr Gonzalez when he rounds.
[2023-06-13] MEDS ORDERED: polyethylene glycol 3350 17gm powd pack PO SCH (11:35)
[2023-06-13] MEDS ORDERED: normal saline 1000ml 1,000 ML IV ONE (11:35)
[2023-06-13] MEDS ORDERED: pantoprazole 40 MG vial IV SCH (11:35)
[2023-06-13] MEDS ORDERED: metoclopramide 5 mg/ml inj IV ONE (11:35)
[2023-06-13 14:00] VITALS: RESP 22; O2SAT 92
[2023-06-13] MEDS: normal saline 1000ml 1,000 ML IV SCH (14:58)
[2023-06-13] MEDS: pantoprazole 40MG/NS 100ML BAG 100 ML IV SCH (14:58)
[2023-06-13] MEDS ORDERED: metoclopramide 5 mg/ml inj IV PRN (17:35)
[2023-06-13 18:00] VITALS: BP 126/93; PULSE 56; RESP 16; TEMP 97.4; O2SAT 94
--- NOTE | 2023-06-13 19:00 | NUR ---
Problems reprioritized. Patient report given, questions answered & plan of care reviewed with Giovanna GUAJRADO.
[2023-06-13] MEDS: docusate sod 100mg capsule PO SCH (19:57)
[2023-06-13 20:00] VITALS: RESP 16; O2SAT 94
[2023-06-13] MEDS: traZODone 50mg tablet PO SCH (20:14)
[2023-06-13 22:00] VITALS: BP 138/81; PULSE 93; RESP 18; TEMP 97.7; O2SAT 92
[2023-06-14] MEDS: normal saline 1000ml 1,000 ML IV SCH ×2 (02:15→15:15)
[2023-06-14] MEDS: lactulose 20gm/30ml cup PO SCH ×3 (02:15→14:00)
[2023-06-14] MEDS: HYDROcodone/acetaminophen 10/325mg tab PO PRN (04:56)
[2023-06-14 06:00] VITALS: BP 143/83; PULSE 79; RESP 18; TEMP 97.6; O2SAT 93
--- NOTE | 2023-06-14 06:26 | NUR ---
Problems reprioritized. Patient report given, questions answered & plan of care reviewed with BENNETT PUENTES.
--- NOTE | 2023-06-14 06:34 | NUR ---
Patient in room ORTHO 4014. I have received report from Giovanna and had the opportunity to ask questions and assume patient care.
[2023-06-14] MEDS: lactose-reduced food (Ensure Enlive) - 237ml bottle PO SCH (07:30)
[2023-06-14] MEDS: K and/or MAG REPLACEMENT MC SCH (07:53)
[2023-06-14] MEDS ORDERED: pantoprazole 40 MG vial IV SCH (08:00)
[2023-06-14] MEDS: pantoprazole 40MG/NS 100ML BAG 100 ML IV SCH (08:11)
[2023-06-14] MEDS: hydrOXYzine 25 MG tablet PO SCH ×2 (08:14→15:33)
[2023-06-14 08:15] VITALS: RESP 18; O2SAT 93
[2023-06-14] MEDS: docusate sod 100mg capsule PO SCH (08:16)
[2023-06-14] MEDS: ROSUVASTATIN CALCIUM 5 MG TABLET PO SCH (08:17)
[2023-06-14] MEDS: cyclobenzaprine 10mg tablet PO SCH ×2 (08:17→15:33)
[2023-06-14] MEDS: OMEGA-3/DHA/EPA/FISH OIL 1 EACH CAPSULE.DR PO SCH (08:17)
[2023-06-14] MEDS: aspirin 81mg, enteric-coated 1 TAB TABLET.DR PO SCH (08:17)
[2023-06-14] MEDS: FLUoxetine 20mg capsule PO SCH (08:18)
[2023-06-14] MEDS: cholecalciferol (vitamin D3) 1,000 unit (25mcg) tablet PO SCH (08:19)
[2023-06-14] MEDS: topiramate 100mg tablet PO SCH (08:19)
[2023-06-14] MEDS: atomoxetine 40 MG capsule PO SCH (08:19)
[2023-06-14] MEDS: multivitamins, therapeutics tablet PO SCH (08:19)
[2023-06-14] MEDS: bacitracin/polymyxin B 15 GM ointment TP SCH ×2 (08:21→13:00)
[2023-06-14] MEDS: diphenhydrAMINE 2%/zinc acetate cream TP SCH ×2 (08:22→13:00)
[2023-06-14 10:00] VITALS: BP 154/76; PULSE 78; RESP 14; TEMP 97.8; O2SAT 96
[2023-06-14 14:29] LABS: ANION GAP 8 (8-16); BILIRUBIN,TOTAL 0.4 MG/DL (0.1-1.0); BLOOD UREA NITROGEN 18 MG/DL (7-18); BUN/CREATININE RATIO 18.6 (10.0-20.0); CALCIUM 8.6 MG/DL (8.5-10.1); CHLORIDE 100 MMOL/L (99-107); CREATININE 0.97 MG/DL (0.40-0.90); GLUCOSE 82 MG/DL (70-104); POTASSIUM 3.6 MMOL/L (3.5-5.1); PRO BRAIN NATRIURETIC PEPTIDE 38 PG/ML (0-125); SODIUM 133 MMOL/L (135-145); TOTAL CARBON DIOXIDE 25.2 MMOL/L (24-32); TOTAL PROTEIN 6.7 G/DL (6.4-8.2); eCRCL 51 ML/MIN; eGFR 57 ML/MIN
[2023-06-14 14:30] LABS: ALANINE AMINOTRANSFERASE 22 U/L (12-78); ALBUMIN 2.9 G/DL (3.4-5.0); ALBUMIN/GLOBULIN RATIO 0.8 (1.1-1.5); ALKALINE PHOSPHATASE 192 IU/L (46-116); ASPARTATE AMINO TRANSFERASE 36 U/L (10-37)
--- NOTE | 2023-06-14 16:10 | NUR ---
Problems reprioritized. Patient report given, questions answered & plan of care reviewed with Rachael at [facility]. Patient was picked up by transport, assisted into a wheelchair and discharged.
== END 2023-06-14 16:46 | DRG 603 ==
LOC: ER 12:25 → ED HOLD 18:09 → EDBEDREQ 06-07 22:23 → ORTHO 4S 06-07 23:11
PROVIDERS: ADMIT Family Medicine; ATTEND Family Medicine
DX: L03.312 Cellulitis of back [any part except buttock and flank] (principal); L30.3 Infective dermatitis; E87.6 Hypokalemia; I10 Essential (primary) hypertension; K21.9 Gastro-esophageal reflux disease without esophagitis; I25.10 Atherosclerotic heart disease of native coronary artery without angina pectoris; G89.29 Other chronic pain; F90.9 Attention-deficit hyperactivity disorder, unspecified type; F41.9 Anxiety disorder, unspecified; Z96.651 Presence of right artificial knee joint; K59.00 Constipation, unspecified; R11.2 Nausea with vomiting, unspecified; B95.61 Methicillin susceptible Staphylococcus aureus infection as the cause of diseases classified elsewhere; G47.00 Insomnia, unspecified; F32.A Depression, unspecified; Z87.11 Personal history of peptic ulcer disease; Z90.49 Acquired absence of other specified parts of digestive tract; Z90.710 Acquired absence of both cervix and uterus; Z88.6 Allergy status to analgesic agent; Z79.82 Long term (current) use of aspirin; Z79.899 Other long term (current) drug therapy; Z74.01 Bed confinement status; Z87.891 Personal history of nicotine dependence
CPT/HCPCS: 36415; 70450; 73030; 80048; 80053; 80061; 80202; 81001; 81003; 83036; 83605; 83735; 83880; 84145; 85025; 85610; 85730; 87040; 87070; 87077; 87081; 87186; 97110; 97161; 97530; 99285; A4565; A6222; A6223; A6253; A6449; C9113; G0378; J1644; J2270; J2405; J2543; J2765; J3370; J7030; J7120; Q0177

== ENCOUNTER 2024-05-24 07:52 | Inpatient (IN) | payer MEDICARE ==
[2024-05-18 12:22] LABS: BASOPHILS # (AUTO) 0.1 X10'3 (0-0.2); BASOPHILS % (AUTO) 0.6 % (0-1); EOSINOPHILS # (AUTO) 0.3 X10'3 (0-0.9); LYMPHOCYTES # (AUTO) 4.2 X10'3 (1.1-4.8); LYMPHOCYTES % (AUTO) 46.3 % (21-51); MEAN CORPUSCULAR HEMOGLOBIN 28.1 PG (27.0-31.0); MEAN CORPUSCULAR HGB CONC 32.6 g/dL (33.0-36.5); MEAN CORPUSCULAR VOLUME 86.4 FL (78-98); MEAN PLATELET VOLUME 7.5 FL (7.4-10.4); MONOCYTES # (AUTO) 0.6 X10'3 (0-0.9); MONOCYTES % (AUTO) 6.9 % (2-12); NEUTROPHILS # (AUTO) 3.9 X10'3 (1.8-7.7); NEUTROPHILS % (AUTO) 43.2 % (42-75); PRE OP HEMATOCRIT 47.5 % (35.0-45.0); PRE OP HEMOGLOBIN 15.5 g/dL (12.0-16.0); PRE OP PLATELET COUNT 245 X10'3 (140-440); RED CELL DISTRIBUTION WIDTH 14.5 % (11.5-14.5)
[2024-05-18 12:23] LABS: BILIRUBIN,URINE NEGATIVE (Neg); CLARITY,URINE CLEAR (Clear); COLOR,URINE YELLOW (Yellow); GLUCOSE, URINE NEGATIVE (Neg); KETONES,URINE NEGATIVE (Neg); LEUKOCYTE ESTERASE ,URINE TRACE (Neg); NITRITES, URINE NEGATIVE (Neg); OCCULT BLOOD,URINE NEGATIVE (Neg); PH,URINE 5.5 (4.8-8.0); PROTEIN,URINE NEGATIVE (Neg); UROBILINOGEN,URINE 0.2 E.U/dL (0.2-1.0)
[2024-05-18 12:31] LABS: UA COLLECTION TYPE CLN CATCH MIDSTREAM
[2024-05-18 12:32] LABS: BACTERIA,URINE FEW /HPF (Neg); CAL OXALATE CRYSTALS 1+ /HPF (NEGATIVE); MUCUS STRANDS FEW /LPF (Neg); PRE OP INR 1.1 INR; PRE OP PROTIME 11.6 SECONDS (9.0-12.0); RBC,URINE NONE SEEN /HPF (0-2); SQUAMOUS EPITHELIAL CELL,UR NONE SEEN /LPF (FEW); TRANSITIONAL EPI CELLS,URINE FEW /HPF; WBC,URINE 0-4 /HPF (0-4)
[2024-05-18 12:34] LABS: ALBUMIN 3.3 G/DL (3.4-5.0); ALBUMIN/GLOBULIN RATIO 0.9 (1.1-1.5); ALKALINE PHOSPHATASE 73 IU/L (46-116); BLOOD UREA NITROGEN 10 MG/DL (7-18); BUN/CREATININE RATIO 8.9 (10.0-20.0); CALCIUM 8.5 MG/DL (8.5-10.1); CHLORIDE 107 MMOL/L (99-107); CREATININE 1.12 MG/DL (0.40-0.90); PRE OP ALT 18 U/L (30-65); PRE OP ANION GAP 8 (8-16); PRE OP AST 15 U/L (10-37); PRE OP BILIRUB, TOTAL 0.3 MG/DL (0.0-1.0); PRE OP GLUCOSE 94 MG/DL (70-104); PRE OP POTASSIUM 3.6 MMOL/L (3.4-5.1); PRE OP SODIUM 141 MMOL/L (135-145); TOTAL CARBON DIOXIDE 26.3 MMOL/L (24-32); TOTAL PROTEIN 7.1 G/DL (6.4-8.2); eGFR 48 ML/MIN
[~2024-05-24] VITALS: Ht 172.7 cm; Wt 106.1 kg
[2024-05-24] VITALS (29 sets, daily range): BP systolic 113–171; BP diastolic 69–107; PULSE 68–94; RESP 11–19; TEMP 97.3–98.4; O2SAT 84–99
[2024-05-24] MEDS: DOCUMENT DATE & TIME OF BETA-BLOCKER PO ONE (05:30)
[2024-05-24] MEDS: ceFAZolin 2gm in dextrose, iso 50 ML IV ONE (05:30)
[~2024-05-24 07:52] MED LIST changes: +APIX5TAB3 PO; +ATOM80CA3 PO; -BIFI1CAP PO; -CHOL50004 PO; -CLON-528 PO; +CYCL-394 PO; +HYDR-3686 PO; -LOP25T PO; +OMEP40CA21 PO; -PANT40TA39 PO; +PANT40TA54 PO; +POTA99CA PO; -SELE200C PO; +SOTA80TA PO; +TRAZ-251 PO; +VIT B12 PO; -[UNRECOGNIZED DRUG - OTHER] PO; +ondansetron/PF 4mg/2ml inj IV PRN
[2024-05-24] MEDS: famotidine 20mg tablet PO ONE (09:01)
[2024-05-24] MEDS: vancomycin 1,500 MG in NS 300ml IV soln IV ONE (09:01)
[2024-05-24] MEDS: ringers solution, lacted 1,000 ML IV SCH ×2 (09:02→11:50)
[2024-05-24] MEDS ORDERED: LIDOcaine 1% (10mg/ml) 2ml vial ONE (09:33)
[2024-05-24] MEDS ORDERED: iohexol 350MG/ML 100ml bottle IV ONE (09:40)
[2024-05-24] MEDS ORDERED: sevoflurane 250ml liquid IH ONE (09:56)
[2024-05-24] MEDS ORDERED: midazolam 1 mg/ML 2ml injection ONE (10:00)
[2024-05-24] MEDS ORDERED: fentaNYL/PF 50MCG/1 ML 2ML syringe ONE (10:00)
[2024-05-24] MEDS ORDERED: propofol inj 20 ML IV ONE (10:02)
[2024-05-24] MEDS ORDERED: rocuronium 10mg/ml inj IV ONE (10:03)
[2024-05-24] MEDS ORDERED: heparin 1,000unit/ml 10ml vial 10 ML ONE (10:15)
[2024-05-24] MEDS ORDERED: traZODone 50mg tablet PO PRN (10:20)
[2024-05-24] MEDS ORDERED: cyclobenzaprine 10mg tablet PO PRN ×2 (10:20→10:27)
[2024-05-24] MEDS ORDERED: hydrOXYzine 25 MG tablet PO PRN (10:20)
[2024-05-24] MEDS ORDERED: ondansetron/PF 4mg/2ml inj ONE (10:28)
[2024-05-24] MEDS ORDERED: dexamethasone sod phosphate 4mg/ml inj. ONE (10:28)
[2024-05-24] MEDS ORDERED: neostigmine methylsulfate 1 MG/ML 10ml vial ONE (10:46)
[2024-05-24] MEDS ORDERED: glycopyrrolate 0.2mg/ml inj ONE (10:47)
[2024-05-24] MEDS ORDERED: potassium Cl 40MEQ/270ML bag 250 ML IV PRN (10:55)
[2024-05-24] MEDS ORDERED: ondansetron/PF 4mg/2ml inj IV PRN ×2 (10:55→11:50)
[2024-05-24] MEDS ORDERED: labetalol 20mg/4ml (5mg/ml) syringe IV PRN (10:55)
[2024-05-24] MEDS ORDERED: docusate sod 100mg capsule PO PRN (10:55)
[2024-05-24] MEDS ORDERED: proCHLORperazine 10 MG/2 ml inj IV PRN ×2 (10:55→11:50)
[2024-05-24] MEDS ORDERED: potassium Cl 20 mEq SR tablet PO PRN (10:55)
[2024-05-24] MEDS ORDERED: potassium CL 10mEq/100ml bag 100 ML IV PRN (10:55)
[2024-05-24] MEDS ORDERED: ALPRAZolam 0.25mg tablet PO PRN (10:55)
[2024-05-24] MEDS ORDERED: hydrALAZINE 20mg/ml inj. IV PRN (10:55)
[2024-05-24] MEDS ORDERED: pantoprazole 40mg Tablet.DR PO PRN (10:55)
[2024-05-24] MEDS ORDERED: potassium Cl 20mEq/100mL bag 100 ML IV PRN (10:55)
[2024-05-24] MEDS ORDERED: diphenhydrAMINE 25mg capsule PO PRN (10:55)
[2024-05-24] MEDS ORDERED: magnesium sulf-water 2g/50mL 50 ML IV PRN (10:55)
[2024-05-24] MEDS ORDERED: potassium Cl 40MEQ/1/2NS 520ml 520 ML IV PRN (10:55)
[2024-05-24] MEDS ORDERED: magnesium sulf-water 4G/100mL 100 ML IV PRN (10:55)
[2024-05-24] MEDS ORDERED: acetaminophen 325mg tablet PO PRN (10:55)
[2024-05-24] MEDS ORDERED: HYDROcodone/acetaminophen 5mg/325mg tablet PO PRN (10:55)
[2024-05-24] MEDS ORDERED: meperidine/PF 25mg/ml syringe IV PRN ×3 (11:50)
[2024-05-24] MEDS: sod chloride 0.9% 10ml flush syringe IV SCH (16:00)
[2024-05-24] MEDS: normal saline 1000ml 1,000 ML IV SCH (19:12)
[2024-05-24] MEDS: ceFAZolin 1GM/D5W- ADD-VANTAGE 50 ML IV SCH (19:12)
[2024-05-24] MEDS: atorvastatin 20mg tablet PO SCH (19:13)
[2024-05-24] MEDS: sotalol HCl 40mg (1/2 tablet) PO SCH (19:13)
[2024-05-24] MEDS: pantoprazole 40mg Tablet.DR PO SCH (19:14)
[2024-05-24] MEDS: VANCOMYCIN 1GM 200ML H20 (PEG) 200 ML IV SCH (21:59)
[2024-05-24] MEDS: topiramate 100mg tablet PO SCH (21:59)
[2024-05-24] MEDS: atomoxetine 40 MG capsule PO SCH (22:00)
[2024-05-25 02:00] VITALS: BP 122/68; PULSE 95; RESP 14; TEMP 97.7; O2SAT 91
[2024-05-25 06:00] VITALS: BP 110/67; PULSE 83; RESP 16; TEMP 97.5; O2SAT 94
[2024-05-25 06:30] VITALS: O2SAT 94
[2024-05-25] MEDS: FLUoxetine 20mg capsule PO SCH (07:50)
[2024-05-25] MEDS: apixaban 5mg tablet PO SCH (07:51)
[2024-05-25] MEDS: OMEGA-3/DHA/EPA/FISH OIL 1 EACH CAPSULE.DR PO SCH (07:51)
[2024-05-25] MEDS: multivitamins, therapeutics tablet PO SCH (07:51)
[2024-05-25 08:00] VITALS: RESP 16; O2SAT 94
[2024-05-25 08:06] LABS: BASOPHILS % (AUTO) 0.3 % (0-1); EOSINOPHILS % (AUTO) 0.1 % (0-6); HEMATOCRIT 39.4 % (35.0-45.0); HEMOGLOBIN 12.6 g/dl (12.0-16.0); LYMPHOCYTES # (AUTO) 3.5 X10'3 (1.1-4.8); LYMPHOCYTES % (AUTO) 29.1 % (21-51); MEAN CORPUSCULAR HEMOGLOBIN 27.4 PG (27.0-31.0); MEAN CORPUSCULAR HGB CONC 31.9 g/dL (33.0-36.5); MEAN CORPUSCULAR VOLUME 85.7 FL (78-98); MEAN PLATELET VOLUME 7.4 FL (7.4-10.4); MONOCYTES # (AUTO) 0.9 X10'3 (0-0.9); MONOCYTES % (AUTO) 7.9 % (2-12); NEUTROPHILS # (AUTO) 7.5 X10'3 (1.8-7.7); NEUTROPHILS % (AUTO) 62.6 % (42-75); PLATELET COUNT 195 X10'3 (140-440); RED CELL DISTRIBUTION WIDTH 14.7 % (11.5-14.5); WHITE BLOOD COUNT 11.9 X10'3 (4.5-11.0)
[2024-05-25 08:16] LABS: INR 1.1 INR
[2024-05-25 08:38] LABS: ALANINE AMINOTRANSFERASE 14 U/L (12-78); ALBUMIN 2.6 G/DL (3.4-5.0); ALBUMIN/GLOBULIN RATIO 0.8 (1.1-1.5); ALKALINE PHOSPHATASE 56 IU/L (46-116); ANION GAP 8 (8-16); ASPARTATE AMINO TRANSFERASE 17 U/L (10-37); BILIRUBIN,TOTAL 0.3 MG/DL (0.1-1.0); BLOOD UREA NITROGEN 9 MG/DL (7-18); BUN/CREATININE RATIO 8.7 (10.0-20.0); CALCIUM 8.1 MG/DL (8.5-10.1); CHLORIDE 107 MMOL/L (99-107); CREATININE 1.04 MG/DL (0.40-0.90); GLUCOSE 99 MG/DL (70-104); MAGNESIUM 2.1 MG/DL (1.5-2.4); POTASSIUM 3.7 MMOL/L (3.5-5.1); PRO BRAIN NATRIURETIC PEPTIDE 303 PG/ML (0-125); SODIUM 139 MMOL/L (135-145); TOTAL CARBON DIOXIDE 24.2 MMOL/L (24-32); TOTAL PROTEIN 5.8 G/DL (6.4-8.2); eCRCL 50 ML/MIN; eGFR 52 ML/MIN
[2024-05-25 09:30] LABS: PROTHROMBIN TIME 11.1 SECONDS (9.0-12.0)
[2024-05-25 11:00] VITALS: BP 111/71; PULSE 81; RESP 12; TEMP 98.7; O2SAT 92
[2024-05-25] MEDS ORDERED: atomoxetine 40 MG capsule PO SCH (21:00)
== END 2024-05-25 14:05 | disposition home or self-care (01) | DRG 274 ==
LOC: UNDOADMIN 07:52 → PAS IN 07:52 → PCU 3S 13:56 → UNDODISIN 05-25 14:05
PROVIDERS: ADMIT Student in an Organized Health Care Education/Training Program; ATTEND Student in an Organized Health Care Education/Training Program
PROC: B24BZZ4 Ultrasonography of Heart with Aorta, Transesophageal (ICD-10-PCS; 2024-05-24)
PROC: 03HY32Z Insertion of Monitoring Device into Upper Artery, Percutaneous Approach (ICD-10-PCS; 2024-05-24)
PROC: B54BZZA Ultrasonography of Right Lower Extremity Veins, Guidance (ICD-10-PCS; 2024-05-24)
PROC: 02L73DK Occlusion of Left Atrial Appendage with Intraluminal Device, Percutaneous Approach (ICD-10-PCS; principal; 2024-05-24 09:56)
DX: I48.91 Unspecified atrial fibrillation (principal); Z00.6 Encounter for examination for normal comparison and control in clinical research program; Z79.899 Other long term (current) drug therapy; Z79.01 Long term (current) use of anticoagulants
CPT/HCPCS: 33340; 36415; 71045; 71046; 76937; 80053; 81001; 82948; 83735; 83880; 85025; 85347; 85610; 85730; 86885; 86900; 86901; 86920; 87081; 87088; 93005; 93308; 93312; 93325; A4615; A4618; A6258; A6449; C1760; C1889; C1893; C1894; G0378; J0690; J1100; J1644; J2003; J2250; J2405; J2704; J2710; J3010; J3372; J3490; J7030; J7040; J7120; Q9967

== ENCOUNTER 2024-07-03 11:37 | Day surgery (SDC) | payer MEDICARE ==
[~2024-07-03] VITALS: Ht 172.7 cm; Wt 107.2 kg
[2024-07-03] VITALS (17 sets, daily range): BP systolic 100–147; BP diastolic 56–108; PULSE 80–97; RESP 10–26; TEMP 99.4; O2SAT 94–99
[~2024-07-03 11:37] MED LIST changes: -ASPI-1009 PO; -ondansetron/PF 4mg/2ml inj IV PRN
[2024-07-03 12:44] LABS: BASOPHILS # (AUTO) 0.1 X10'3 (0-0.2); BASOPHILS % (AUTO) 0.6 % (0-1); EOSINOPHILS # (AUTO) 0.2 X10'3 (0-0.9); EOSINOPHILS % (AUTO) 2.6 % (0-6); HEMATOCRIT 45.2 % (35.0-45.0); HEMOGLOBIN 14.6 g/dl (12.0-16.0); LYMPHOCYTES % (AUTO) 43.6 % (21-51); MEAN CORPUSCULAR HEMOGLOBIN 27.6 PG (27.0-31.0); MEAN CORPUSCULAR HGB CONC 32.3 g/dL (33.0-36.5); MEAN CORPUSCULAR VOLUME 85.6 FL (78-98); MEAN PLATELET VOLUME 7.4 FL (7.4-10.4); MONOCYTES # (AUTO) 0.7 X10'3 (0-0.9); MONOCYTES % (AUTO) 7.7 % (2-12); NEUTROPHILS # (AUTO) 4.2 X10'3 (1.8-7.7); NEUTROPHILS % (AUTO) 45.5 % (42-75); PLATELET COUNT 292 X10'3 (140-440); RED BLOOD COUNT 5.28 X10'6 (4.20-5.60); WHITE BLOOD COUNT 9.3 X10'3 (4.5-11.0)
[2024-07-03 12:59] LABS: ALBUMIN 3.4 G/DL (3.4-5.0); ANION GAP 9 (8-16); BLOOD UREA NITROGEN 17 MG/DL (7-18); BUN/CREATININE RATIO 15.2 (10.0-20.0); CALCIUM 8.3 MG/DL (8.5-10.1); CHLORIDE 110 MMOL/L (99-107); CREATININE 1.12 MG/DL (0.40-0.90); GLUCOSE 99 MG/DL (70-104); POTASSIUM 3.9 MMOL/L (3.5-5.1); SODIUM 142 MMOL/L (135-145); TOTAL CARBON DIOXIDE 22.7 MMOL/L (24-32); eGFR 48 ML/MIN
[2024-07-03 13:03] LABS: APTT 28 SECONDS (22-32); INR 1.1 INR; PROTHROMBIN TIME 11.7 SECONDS (9.0-12.0)
[2024-07-03] MEDS ORDERED: ASPI-1265 PO (14:51)
[2024-07-03] MEDS ORDERED: CLOP75TA33 PO (14:51)
[2024-07-03] MEDS: fentaNYL/PF 50MCG/1 ML 2ML syringe IV ONE (15:08)
[2024-07-03] MEDS: MIDAZolam 1mg/ml 10ml vial IV ONE (15:08)
[2024-07-03] MEDS ORDERED: FLU VACC TS2024-25(6MOS UP)/PF 45 MCG/0.5 ML SYRINGE IMVAC ONE (19:35)
== END 2024-07-03 15:55 | disposition home or self-care (01) ==
LOC: SSTAY O 11:37
PROVIDERS: ATTEND Student in an Organized Health Care Education/Training Program
DX: I48.91 Unspecified atrial fibrillation (principal); Z23 Encounter for immunization; I10 Essential (primary) hypertension
CPT/HCPCS: 36415; 80048; 85025; 85610; 85730; 90471; 90686; 93312; 93325; A4620; J2250; J3010; J7030

== ENCOUNTER 2025-01-24 10:22 | Emergency (ER) | payer MEDICARE ==
[~2025-01-24] VITALS: Ht 172.7 cm; Wt 100.0 kg
[~2025-01-24 10:22] MED LIST changes: +ASPI-1265 PO; +CLOP75TA33 PO
--- NOTE | 2025-01-24 10:50 | Physician Documentation ---
History of Present Illness ~ Chief Complaint: Back Pain Stated Complaint: BACK PAIN Time Seen by MD: 10:34 OK to notify your PCP?: Yes Primary Medical Doctor: MONA Cordon Source: patient Mode of Arrival: POV Exam Limitations: no limitations HPI This is a 74-year-old female who comes in complaining of low back pain. The patient is morbidly obese and states she has a history of vertebral body fractures which required kyphoplasty as well as bulging disc in her back. The patient states she had a fall a couple of months ago which exacerbated her back pain and one week ago she tripped over something walking out of the bathroom twisting her back and since it has had worsening back pain. She denies pain that radiates down the legs. She denies weakness or numbness tingling of the legs. She denies saddle paresthesias, urinary retention or loss of bowel control Medication Reconciliation Allergies: Coded Allergies: ibuprofen (Verified Adverse Reaction, Unknown, STOMACH PAIN, 05/23/24) Scheduled Apixaban (Eliquis), 5 MG PO Q12H, (Reported) Aspirin (Aspirin), 1 TAB PO DAILY Atomoxetine HCl (Atomoxetine HCl), 80 MG PO HS, (Reported) Clopidogrel Bisulfate (Clopidogrel), 1 TAB PO DAILY Fluoxetine HCl (Prozac), 60 MG PO QAM, (Reported) Multivitamin (Multi Vitamin Daily), 1 EACH PO DAILY, (Reported) [place]-3 Fatty Acids/Fish Oil (Fish Oil 1,000 Mg Softgel), 4 CAP PO DAILY, (Reported) Omeprazole (Prilosec), 40 MG PO BID, (Reported) Potassium Citrate (Potassium), 1 TAB PO QAM, (Reported) Rosuvastatin Calcium* (Crestor*), 20 MG PO QPM, (Reported) Sotalol Hcl (Sotalol), 40 MG PO BID, (Reported) Topiramate (Topamax), 100 MG PO BID, (Reported) [Vit B12], 2 CAP PO DAILY, (Reported) Scheduled PRN Cyclobenzaprine HCl (Cyclobenzaprine HCl), 10 MG PO PRN PRN for muscle spasms, (Reported) Hydroxyzine Hcl* (Atarax*), 25 MG PO QID PRN for for anxiety/agitation, (Reported) Pantoprazole Sodium (Pantoprazole Sodium), 1 TAB PO BID PRN for GERD, (Reported) Trazodone HCl (Trazodone HCl), 1-2 TAB PO HS PRN for sleep, (Reported) Past Medical History Past Medical History: Coronary Artery Disease, Hypertension, GERD, Peptic Ulcer Disease, Chronic Back Pain, Anxiety, Depression Past Surgical History: appendectomy, cholecystectomy, hysterectomy, orthopedic surgeries Patient History: FH: Alzheimers disease GRANDFATHER OR GRANDMOTHER FH: HTN (hypertension) MOTHER, , Age: 83, Cause: Failure to thrive in adult FH: breast cancer MOTHER, , Age: 83, Cause: Failure to thrive in adult FH: heart disease FATHER, , Age: 86, Cause: Heart disease MOTHER, , Age: 83, Cause: Failure to thrive in adult Alcohol Use: None Drug Use: none Lives with: Spouse Lives In: Home Physical Exam Physical Exam Vital Signs: Temperature: 97.4, Source: Temporal, Heart Rate: 86, Respiratory Rate: 15, BP: 131/81, Pulse Oximetry: 96, Weight: 100.000 Pulse Oximetry Reflects: adequate oxygenation General Appearance: alert, WD/WN, no apparent distress Back There is tenderness to palpation of the bilateral paraspinal muscles of the tho racolumbar spine. No midline step-off deformity or point tenderness. Negative straight leg raise bilaterally. DTR - Lower Extremities: 2+ knee (R), 2+ knee (L) Progress Results/Orders Results/Orders Orders - LOW BREEN Ketorolac Trometh 15mg/Ml Vial (Toradol (01/24/25 10:45) Ct Lumbar Spine (01/24/25 11:31) Completed Orders - LOW BREEN Dexamethasone Inj (Decadron 10mg/Ml Inj) (01/24/25 10:44) Ct Lumbar Spine (01/24/25 11:31) Medications Received in ER Medications (Trade) Dose Ordered Sig/Vanessa Route PRN Reason Start Time Stop Time Status Last Admin Dose Admin (Decadron 10mg/ ml inj) 10 mg ONCE STAT IM 01/24/25 10:44 01/24/25 10:47 DC 01/24/25 11:02 10 MG (Toradol injection) 30 mg ONCE ONCE IM 01/24/25 10:45 01/24/25 10:50 DC 01/24/25 11:04 30 MG Vital Signs 01/24/25 01/24/25 10:26 11:04 Temp 97.4 Pulse 86 Resp 15 18 B/P (MAP) 131/81 Pulse Ox 96 Medical Decision Making Findings The CT scan as interpreted by the radiologist shows no an acute appearing fracture of the sacrum as well as the anterior and inferior endplates of L3. The L3 as less than 25% lots of vertebral body height. There was no evidence of osseous retropulsion. The patient has no pain, numbness, tingling or weakness radiating down of the lower extremities. She has not no signs of cauda equina syndrome or focal neuro deficits. All of the issues seemed to be vertebral body fractures I will need to be addressed by a neurosurgeon. The patient states she does have a neurosurgeon who has performed her coffee blasts use in the past that she is still has a relationship and can follow up with a. The I gave the patient an injection of Toradol 30 mg IM and do not 10 mg IM. These medications significantly helped her pain as the patient does not want narcotic pain medications because they constipated her. We will continue at home was a bursa prednisone at 60 mg once a day for the next four days and the patient states you can take Tylenol for lesser pain. I told her if she has any worsening symptoms which I discussed with her at length she needs to return to the ER Differential Diagnosis Low back sprain strain. Disc herniation of the low back. Facet arthropathy. Vertebral body fracture Departure Disposition: HOME / SELF CARE / HOMELESS Impression: Primary Impression: Fracture of sacrum Additional Impression: Fracture of lumbar vertebra Condition: Stable Discharge Instructions: Acute Back Pain, Adult Additional Instructions: Eight of her follow up with the your primary care physician for referral to a spinal surgeon or follow up directly with the your spinal surgeon you seen in the past. Take all medications as prescribed. You can take [id number] Tylenol for lesser pain. Return to the ER for any worsening or concerning sym ptoms Referrals: NO PRIMARY CARE PROVIDER (PCP) Prescriptions Prednisone* (Prednisone*) 20 Mg Tablet 3 TAB PO DAILY, #12 TAB Prov: LOW BREEN 01/24/25 Signature Scribe Signature: No scribe Attestation: The note accurately reflects work and decisions made by me.Low BURGOS 01/24/25 12:31 LOW BREEN Jan 24, 2025 10:49
[2025-01-24] MEDS: dexamethasone sod phosphate 10mg/ml inj IM STA (11:02)
[2025-01-24] MEDS: ketorolac trometh 15mg/ml vial 15 MG/ML ML IM ONE (11:04)
--- NOTE | 2025-01-24 12:00 | RADIOLOGY REPORT ---
CLINICAL INDICATION: Low back injury TECHNIQUE: CT of the lumbar spine was performed without intravenous contrast. Sagittal and coronal re formatted images are provided. All CT scans at this medical facility are performed using dose modula tion techniques as appropriate to a performed exam including the following: Automated exposure contro l was utilized; adjustment of the MA and/or KV according to patient size; and use of iterative recons truction technique. COMPARISON: None CT Dose: CTDI volume is 34.8 mGy. Dose-length product is 1130.1 mGy*cm FINDINGS: The bones are demineralized. There is cortical irregularity in the left sacrum. There is age-indeterm inate T12 compression fracture with about 75% vertebral body height loss. No osseous retropulsion. Th ere is T11 and L2 vertebral body height loss which is of indeterminate age. The L2 vertebral body is status post augmentation. Possible acute L3 compression fracture with cortical deformity through the anterior inferior endplate. 25% vertebral body height loss of L3. No osseous retropulsion. The alignm ent and curvature of the lumbar spine are maintained. Multilevel intervertebral disc space narrowing. No significant spinal stenosis. Multilevel neural foraminal stenosis. Multilevel facet arthropathy . The prevertebral soft tissues are unremarkable. Paraspinal muscles are also within normal limits. Nonobstructing left intrarenal calculus. Left renal cyst. IMPRESSION: 1. Cortical irregularity in the left sacrum near the sacroiliac joint, suspicious for acute fracture. 2. Possible acute fracture through the anterior inferior corner of the L3 vertebral body. About 25% v ertebral body height loss. No osseous retropulsion. Age-indeterminate T11 and T12 compression fractur es with about 75% T12 vertebral body height loss and no osseous retropulsion. MRI lumbar spine recom mended for further evaluation. 3. Multilevel lumbar spondylosis. 4. Left renal cyst. Nonobstructing left intrarenal calculus.
[2025-01-24] MEDS ORDERED: PRED20TA PO (12:31)
[2025-01-24 12:54] VITALS: BP 134/70; PULSE 86; RESP 17; TEMP 97.7; O2SAT 98
== END 2025-01-24 12:56 | disposition home or self-care (01) ==
LOC: ER 10:23
DX: S32.039A Unspecified fracture of third lumbar vertebra, initial encounter for closed fracture (principal); S32.10XA Unspecified fracture of sacrum, initial encounter for closed fracture; I10 Essential (primary) hypertension; I25.10 Atherosclerotic heart disease of native coronary artery without angina pectoris; Z88.6 Allergy status to analgesic agent; Z90.49 Acquired absence of other specified parts of digestive tract; Z90.710 Acquired absence of both cervix and uterus; F41.9 Anxiety disorder, unspecified; F32.A Depression, unspecified; K21.9 Gastro-esophageal reflux disease without esophagitis; X58.XXXA Exposure to other specified factors, initial encounter; Y93.89 Activity, other specified; Y92.89 Other specified places as the place of occurrence of the external cause; Y99.8 Other external cause status
CPT/HCPCS: 72131; 96372; 99285; J1100; J1885